=== PATIENT | male | born 1950 | race Caucasian/White ===

== ENCOUNTER 2025-03-15 08:53 | Outpatient (REF) | payer MEDICARE, OTHER, SELFPAY ==
--- OUTSIDE RECORDS SUMMARY | 2025-03-15 09:27 | XMS_ITS | Clinical Summary ---
Author Organization [address] [place] [address] [place] [id number] Phone Care Team Providers Care Speech Language Pathologist Prn Name Role Phone Alex Modi MD Primary Care Provider [phone] Allergies Active Allergy Reactions Criticality Noted Date Comments Hyoscyamine Pain Medium 01/04/2025 Penicillins 07/29/2024 Piroxicam Other Low 01/04/2025 Medications atorvastatin (LIPITOR) 80 mg tablet Take 1 tablet (80 mg total) by mouth 1 (one) time each day. 4 Active carvediloL (COREG) 3.125 mg tablet 4 Active Trelegy Ellipta 100-62.5-25 mcg inhaler INHALE 1 PUFF INTO THE LUNGS EVERY DAY 4 Active losartan (COZAAR) 25 mg tablet Take 1 tablet (25 mg total) by mouth 1 (one) time each day. 4 Active metoprolol succinate (TOPROL-XL) 25 mg 24 hr tablet Take 1 tablet (25 mg total) by mouth 1 (one) time each day. 4 Active Brilinta 90 mg tablet Take 1 tablet (90 mg total) by mouth 2 (two) times a day. 4 Active albuterol HFA (PROAIR HFA ; PROVENTIL HFA ; VENTOLIN HFA) 90 mcg/actuation inhaler Inhale 2 puffs by mouth every 6 (six) hours if needed for wheezing or shortness of breath. 6.7 g 5 Active cetirizine (ZyrTEC) 10 mg tablet Take 1 tablet (10 mg total) by mouth 1 (one) time each day. 30 each 2 Active Active Problems Problem Noted Date Diagnosed Date Abdominal hernia 01/04/2025 Abnormal weight loss 01/04/2025 Alcohol abuse 01/04/2025 Abdominal pain 01/04/2025 Back pain 01/04/2025 Benign prostatic hyperplasia with urinary obstru ction 01/04/2025 Colon polyp 01/04/2025 Coronary artery disease 01/04/2025 Diverticular disease 01/04/2025 Diverticulosis of colon 01/04/2025 Hemorrhoids 01/04/2025 Hypertension 01/04/2025 Hyponatremia 01/04/2025 Inspiratory wheezing 01/04/2025 Acute sinusitis 01/04/2025 Overweight with body mass index (BMI) 25.0-29.9 01/04/2025 Tubular adenoma 01/04/2025 Bilateral hearing loss 11/03/2024 Chronic systolic heart failure ([facility] V24, [facility] V28) 11/03/2024 Seborrheic dermatitis 07/08/2024 Mild chronic obstructive pul monary disease ([facility] V24, [facility] V28) 11/01/2023 Tobacco dependence in remission 11/01/2023 Generalized ischemic myocardial dysfunction 11/0 02/2023 Aortic valve stenosis 10/02/2022 Overview (01/04/2025): mild Diastolic dysfunction 10/02/2022 Overview (01/04/2025): grade 1 Mitral valve regurgitation 10/02/2022 Cardiomyopathy ([facility] V24, [facility] V28) 2022 Stage 2 chronic kidney disease 06/28/2022 Stage 3a chronic kidney disease (CMS/HCC V24, CM S/[facility] V28) 02/26/2021 Calcification of coronary artery 02/08/2021 Sensorineural hearing loss (SNHL) of both ears 0 03/05/2020 Multiple nodules of lung 01/20/2020 Arthritis 04/21/2019 Hyperlipidemia 04/21/2019 Pulmonary emphysema ([facility] V24, [facility] V28) 0 11/04/2018 Overview (01/04/2025): mild Chronic pain of inguinal region 05/02/2018 Disorder involving thrombocytopenia ([facility] V24 ) 12/27/2017 Solitary pulmonary nodule 10/30/2017 Overview (01/04/2025): 4mm left/stable History of colonic polyps 06/26/2017 Lumbar spondylosis 09/19/2016 Anemia 11/23/2013 Gastritis 11/23/2013 Overview (01/04/2025): RECORDED 11/23/2013 9:17AM BY LORENZO WATSON MA, OFFICE VISIT Benign neoplasm of colon 11/23/2013 Bilateral inguinal hernia 11/23/2013 Overview (01/04/2025): RECORDED 11/23/2013 8:38AM BY LORENZO WATSON MA, ANNOTATION/ADDENDUM Blepharitis 11/23/2013 Overview (01/04/2025): IMPRESSION: PT ADVISED TO STOP TOPICAL STEROID CREAM. TRY WATER/BABY SHAMPOO MIX. CALL INB/WORSE.; RECORDED 11/23/2013 9:48AM BY ALEX MODI MD, ANNOTATION/ADDENDUM Disability of walking 11/23/2013 Overview (01/04/2025): RECORDED 11/23/2013 8:38AM BY LORENZO WATSON MA, ANNOTATION/ADDENDUM Flatulence, eructation and gas pain 11/23/2013 Gastroduodenitis 11/23/2013 Heart murmur 11/23/2013 Nocturia 11/23/2013 Overview (01/04/2025): IMPRESSION: SYMPTOMS MINIMAL AT THIS TIME. TREATMENT OPTIONS DISCUSSED.; RECORDED 11/23/2013 8:38AM BY LORENZO WATSON MA, ANNOTATION/ADDENDUM Pure hypercholesterolemia 11/23/2013 Rosacea 11/23/2013 Chalazion 06/03/2013 Overview (01/04/2025): IMPRESSION: ADVISED TO TRY WARM COMPRESS ALONG WITH TOPICAL ABX. IF PERSISTANT/WORSE MAY NEED OPHTHO EVAL.; RECORDED 06/03/2013 1:17PM BY LORENZO WATSON MA, ANNOTATION/ADDENDUM Inguinal hernia 05/07/2013 Overview (01/04/2025): IMPRESSION: SCHEDULED FOR REPAIR WITH DR GALVAN.; RECORDED 05/07/2013 11:03AM BY KADE HYATT MA, ANNOTATION/ADDENDUM Chronic sinusitis 05/07/2013 Overview (01/04/2025): IMPRESSION: CONSIDER RX IF PERSISTANT/WORSE.; RECORDED 05/07/2013 11:03AM BY KADE HYATT MA, ANNOTATION/ADDENDUM Syncope and collapse 05/07/2013 Overview (01/04/2025): IMPRESSION: EPISODES SPOUND VASOVAGAL BUT EVALUATION FOR SERIOUS VALVULAR DISEASE AND WALL MOTION ABNORMALITIES JUSTIFIED.; RECORDED 05/07/2013 11:03AM BY KADE HYATT MA, ANNOTATION/ADDENDUM Hyperkalemia 11/26/2012 Overview (01/04/2025): RESOLVED DATE: 06/05/2012; RECORDED 11/26/2012 9:14AM BY LORENZO WATSON MA, ANNOTATION/ADDENDUM Encounters Date Type Department Care Team Description 12/21/2024 2:00 PM EDT Office Visit [facility] [address] [place], [place] [address] [phone] Rip Marquez PA Acute bacterial rhinosinusitis (Primary Dx) from Last 3 Months Surgical History Surgery Date Site/Laterality Comments HERNIA REPAIR PROCEDURE: ND REPAIR FIRST ABDOMINAL WALL HERNIA APPENDECTOMY PROCEDURE: ND APPENDECTOMY HERNIA REPAIR 05/04/2015 Bilateral PROCEDURE: HISTORICAL HERNIA REPAIR/ING; COMMENT: 2014 right; 2013 left inguinal hernia repair Medical History Medical History Date Comments BPH (benign prostatic hyperplasia) 04/21/2019 DX:BPH (benign prostatic hyperplasia) Arthritis 04/21/2019 DX:Arthritis GERD (gastroesophageal reflux disease) 04/21/2019 DX:GERD (gastroesophageal reflux disease) Hyperlipidemia 04/21/2019 DX:Hyperlipidemi a Chronic pain of inguinal region 05/02/2018 DX:Chronic pain of inguinal region S/P inguinal herniorrhaphy 05/02/2018 DX:S/ P inguinal herniorrhaphy Family History Medical History Relation Name Comments Coronary artery disease Father Breast cancer Sister 2 other sister s with breast cancer Relation Name Status Comments Father Sister Social History Tobacco Use Types Packs/Day Years Used Date Smoking Tobacco: Heavy Smoker Smokeless Tobacco: Never Alcohol Use Standard Drinks/Week Comments Yes 0 (1 standard drink = 0.6 oz pur e alcohol) Sex and Gender Information Value Date Recorded Sex Assigned at Not on file Legal Sex Male 12:57 PM EST Gender Identity Not on file Sexual Orientation Not on file Obstetrics History Last Filed Vital Signs Vital Sign Reading Time Taken Comments Blood Pressure 110/60 12/21/2024 2:00 PM EDT Pulse 64 12/21/2024 2:00 PM EDT Temperature 36.3 C (97.4 F) 12/12/2024 2:00 PM EDT Respiratory Rate - - Oxygen Saturation 97% 12/21/2024 2:00 PM EDT Inhaled Oxygen Concentration - - Weight - - Height - - Body Mass Index - - Plan of Treatment Health Maintenance Due Date Last Done Comments Hepatitis A Vaccines (1 of 2 - Risk 2-dose series) 1969 Cholesterol Screening (Lipid Panel) 06/19/2022 Falls Risk Assessment 06/19/2022 Hepatitis C Screening 06/19/2022 Medicare Annual Wellness Visit 06/19/2022 Social Influencers of Health Screening 06/19/2022 Depression Screening 07/22/2024 Hypertension/CHF/CAD Annual BMP Blood Test 07/29/2024 Influenza Vaccine (#1) 2025 , 04/13/2023, 05/10/2022, Additional history exists DTaP,Tdap,and Td Vaccines (5 - Td or Tdap) 08/04/2031 08/04/2021, 07/13/2021, 05/25/2011, Additional history exists Pneumococcal Vaccine: 50+ Years Completed 06/10/2015, 06/09/2014 Zoster Vaccines Completed 02/22/2019, 08/23, 01/14/2014 RSV Immunization Adult Patients Completed 05/27/2023 COVID-19 Vaccine Completed 10/24/2024, 10/2023, 04/13/2023, Additional history exists HIB Vaccines Aged Out No longer eligi ble based on patient's age to complete this topic HPV Vaccines Aged Out No longer eligi ble based on patient's age to complete this topic Hepatitis B Vaccines Aged Out No long er eligible based on patient's age to complete this topic IPV Vaccines Aged Out No longer eligi ble based on patient's age to complete this topic MMR Vaccines Aged Out No longer eligi ble based on patient's age to complete this topic Meningococcal ACWY Vaccine Aged Out N o longer eligible based on patient's age to complete this topic Meningococcal B Vaccine Aged Out No l onger eligible based on patient's age to complete this topic RSV Immunization Patients Under 20 months Aged Out No longer eligible based on patient's age to complete this topic Varicella Vaccines Aged Out No longer eligible based on patient's age to complete this topic Insurance MEDICARE [facility] Care Teams Speech Language Pathologist Prn Relationship Specialty Start Date End Date Alex Modi MD [id number] PCP - General Internal Medicine 10/12/17
== END 2025-03-15 08:54 | disposition home or self-care (01) ==
LOC: HO.SH 08:53
PROVIDERS: Visit Provider Pediatrics
DX: Z01.118 Encounter for examination of ears and hearing with other abnormal findings (principal); H90.3 Sensorineural hearing loss, bilateral
CPT/HCPCS: 92557